=== PATIENT | female | born 1990 | race Caucasian/White ===

== ENCOUNTER 2016-08-02 14:21 | Inpatient (IN) | payer OTHER ==
[~2016-08-02] VITALS: Ht 162.6 cm; Wt 63.0 kg
[2016-08-02] MEDS ORDERED: LORAZEPAM 2 MG INJ IV ONE (15:00)
[2016-08-02 15:17] LABS: ADD SCAN DIFF NO
[2016-08-02 15:18] LABS: BASOPHIL # 0.1 10^3/ul (0.0-0.1); BASOPHILS % 0.5 % (0.0-2.0); EOSINOPHILS % 0.4 % (0.0-7.0); HEMATOCRIT 44.2 % (37.0-47.0); HEMOGLOBIN 15.1 g/dl (12.0-16.0); LYMPHOCYTES # 2.8 10^3/ul (0.8-2.9); LYMPHOCYTES % 25.5 % (15.0-51.0); MEAN CORPUSCULAR HEMOGLOBIN 31.3 pg (29.0-33.0); MEAN CORPUSCULAR HGB CONC 34.2 g/dl (32.0-37.0); MEAN CORPUSCULAR VOLUME 91.5 fl (82.0-101.0); MEAN PLATELET VOLUME 11.5 fl (7.4-10.4); MONOCYTE # 0.3 10^3/ul (0.3-0.9); MONOCYTES % 3.1 % (0.0-11.0); NEUTROPHIL # 7.8 10^3/ul (1.6-7.5); NEUTROPHILS % 70.2 % (39.0-77.0); PLATELET COUNT 293 10^3/UL (140-415); RED BLOOD COUNT 4.83 10^6/ul (4.20-5.40); RED CELL DISTRIBUTION WIDTH 11.2 % (11.5-14.5); WHITE BLOOD COUNT 11.1 10^3/ul (4.8-10.8)
--- NOTE | 2016-08-02 15:24 | RADRPT ---
PROCEDURE: XR Chest AP portable CLINICAL INDICATION: Chest pain TECHNIQUE: An AP portable radiograph of the chest was submitted. COMPARISON: None. FINDINGS: Support Hardware: None Cardiovascular: The cardiovascular silhouette appears unremarkable. Lung Frias: The lung frias appear clear with no nodule, alveolar infiltrate, or interstitial promi nence evident. Pleural Spaces: No pneumothorax or pleural effusion is identified. Osseous Structures: The osseous structures appear intact. Soft Tissues: The soft tissues appear unremarkable. IMPRESSION: Unremarkable portable chest. Physician Itz Date Time Electronically viewed and signed by Ayala Kang Physician on 08/02/2016 15:23 /
[2016-08-02 15:27] LABS: CHLORIDE 101 mmol/L (97-110); SODIUM 140 mmol/L (135-144)
[2016-08-02 15:28] LABS: POTASSIUM 3.6 mmol/L (3.5-5.1)
[2016-08-02 15:29] LABS: INR 0.91; PROTIME 12.3 Sec (12.2-14.2)
[2016-08-02 15:30] LABS: CREATININE 0.76 mg/dl (0.44-1.00)
[2016-08-02 15:31] LABS: ANION GAP 20 (8-16); BLOOD UREA NITROGEN 12 mg/dl (7-20); CARBON DIOXIDE 23 mmol/L (21-31); GLUCOSE 92 mg/dl (70-220)
[2016-08-02 15:40] LABS: B-TYPE NATRIURETIC PEPTIDE 46 PG/ML (0-125)
[2016-08-02 15:46] LABS: PARTIAL THROMBOPLASTIN TIME 25.9 Sec (25.0-35.0)
[2016-08-02 15:47] LABS: TROPONIN-I < 0.012 ng/ml (0.00-0.12)
--- NOTE | 2016-08-02 15:47 | ERA ---
ER Documentation Chief Complaint Date/Time DATE: 08/02/16 TIME: 15:44 Chief Complaint CWP,SOB X 2 MOS HPI 26-year-old female who presents with chest pain and shortness of breath for approximately 2-6 months. The patient has had progressive symptoms over this timeframe with multiple episodes of near syncope. Never with exertion, now occurring at rest. She was seen by primary care physician in approximately 1-2 weeks ago and told that she had an abnormal EKG and needed to see a manager retirement. She went to the office today with a manager retirement could not see her. The patient does have significant family history of cardiac arrest, sudden and early cardiac disease. She does not take control, no pleuritic pain. No exertional symptoms currently. ROS All systems reviewed and are negative except as per history of present illness. Medications Home Meds No Active Prescriptions or Reported Meds Allergies Allergies: Coded Allergies: No Known Allergy (Unverified , 08/02/16) PMhx/Soc History of Surgery: Yes (tonsilectomy) Anesthesia Reaction: No Hx Neurological Disorder: No Hx Respiratory Disorders: No Hx Cardiac Disorders: Yes (high cholesterol ) Hx Psychiatric Problems: No Hx Miscellaneous Medical Probl: No Hx Alcohol Use: Yes Hx Substance Use: No Hx Tobacco Use: No Smoking Status: Never smoker FmHx Family History: coronary disease Physical Exam Vitals Vital Signs Date Time Temp Pulse Resp B/P Pulse Ox O2 Delivery O2 Flow Rate FiO2 08/02/16 18:02 126 18 126/71 100 Room Air 08/02/16 17:49 105 17 128/74 100 Room Air 08/02/16 15:27 105 24 138/74 100 Room Air 08/02/16 14:28 98.2 109 20 132/78 99 Physical Exam General: Well developed, well nourished, no acute distress Head: Normocephalic, atraumatic. Eyes: Pupils equally reactive, EOM intact ENT: Moist mucous membranes Neck: Supple, no lymphadenopathy Respiratory: Lungs clear bilaterally, no distress Cardiovascular: Tachycardia, slight systolic murmur Abdominal: Soft, non-tender, non-distended, no peritoneal signs : Deferred MSK: No edema, no unilateral swelling, 5/5 strength Neurologic: Alert and oriented, moving all extremities, normal speech, no focal weakness, no cerebellar signs Skin: No rash Psych: Normal mood Result Diagram: 08/02/16 1500 08/02/16 1500 Results 24 hrs Laboratory Tests Test 08/02/16 15:00 White Blood Count 11.110^3/ul Red Blood Count 4.8310^6/ul Hemoglobin 15.1g/dl Hematocrit 44.2% Mean Corpuscular Volume 91.5fl Mean Corpuscular Hemoglobin 31.3pg Mean Corpuscular Hemoglobin Concent 34.2g/dl Red Cell Distribution Width 11.2% Platelet Count 67172^3/UL Mean Platelet Volume 11.5fl Neutrophils % 70.2% Lymphocytes % 25.5% Monocytes % 3.1% Eosinophils % 0.4% Basophils % 0.5% Nucleated Red Blood Cells % 0.0/100WBC Neutrophils # 7.810^3/ul Lymphocytes # 2.810^3/ul Monocytes # 0.310^3/ul Eosinophils # 0.010^3/ul Basophils # 0.110^3/ul Nucleated Red Blood Cells # 0.010^3/ul Prothrombin Time 12.3Sec Prothrombin Time Ratio 1.0 INR International Normalized Ratio 0.91 Activated Partial Thromboplast Time 25.9Sec D-Dimer < 220.00ng/ml D-Dimer Comment Sodium Level 140mmol/L Potassium Level 3.6mmol/L Chloride Level 101mmol/L Carbon Dioxide Level 23mmol/L Anion Gap 20 Blood Urea Nitrogen 12mg/dl Creatinine 0.76mg/dl Glucose Level 92mg/dl Calcium Level 10.0mg/dl Troponin I < 0.012ng/ml B-Type Natriuretic Peptide 46PG/ML Serum HCG, Qualitative NEGATIVE Current Medications Medications (Trade) Dose Ordered Sig/Cedric Route PRN Reason Start Time Stop Time Status Last Admin Dose Admin Lorazepam (Ativan) 0.5 mg ONCE ONCE IV 08/02/16 15:00 08/02/16 15:01 DC 08/02/16 15:08 Ondansetron HCl (Zofran Inj) 4 mg ER BRIDGE PRN IV NAUSEA AND/OR VOMITING 08/02/16 18:00 08/03/16 17:59 Acetaminophen (Tylenol Tab) 650 mg ER BRIDGE PRN PO MILD PAIN/FEVER 08/02/16 18:00 08/03/16 17:59 Procedures/MDM EKG, MONITORS, & DIAGNOSTIC IMAGING: EKG: I reviewed and interpreted a 12-lead EKG. Rhythm: Sinus tachycardia Ectopy: None Intervals: Left bundle branch block ST segments: No elevations or depressions T waves: No contiguous inversions EKG #2 Rhythm: Sinus tachycardia Ectopy: None Intervals: Left bundle branch block ST segments: No elevations or depressions T waves: No contiguous inversions LAB INTERPRETATION: Negative d-dimer, negative troponin MEDICAL DECISION MAKING: The patient presents with multiple months of chest pain, shortness of breath, near syncope. She has a left bundle branch block on EKG and significant family history for sudden , cardiac disease. I do not believe this is consistent with acute coronary syndrome however the patient does have conduction delay. The patient is having episodes of near syncope which could represent NSVT. The patient is having difficulty with follow-up as an outpatient basis. I believe she would benefit from inpatient hospitalization, cardiology consultation, echocardiogram and possible EP consultation. ER COURSE: The patient continues to be well-appearing, she intermittently has sinus tachycardia when anxious or when having a conversation. The patient's laboratory testing is unrevealing. The patient was given anxiolysis. I kept the patient and/or family informed of laboratory and diagnostic imaging results throughout the emergency room course. DISPOSITION PLAN: Telemetry admission for management of left bundle branch block, near syncope CONSULTATION: Accepting care team and consultations: I discussed the current laboratory data, diagnostic imaging and emergency care provided. Admitting team: Dr. Rich Admitting team indication: Insurance directed Departure Diagnosis: Primary Impression: Near syncope Additional Impression: Left bundle branch block Condition: Stable GUILLERMO LUNDBERG MD Aug 02, 2016 15:47
[2016-08-02 16:20] LABS: D-DIMER < 220.00 ng/ml (<460)
[2016-08-02] MEDS ORDERED: ONDANSETRON 4 MG INJ IV PRN (18:00)
[2016-08-02] MEDS ORDERED: ACETAMINOPHEN 325 MG TAB PO PRN ×2 (18:00→23:00)
[2016-08-02 19:40] VITALS: PULSE 130
[2016-08-02] MEDS ORDERED: METOPROLOL 5 MG INJ IV PRN (20:00)
[2016-08-02 20:03] VITALS: PULSE 90
[2016-08-02 20:07] VITALS: BP 117/68; RESP 20
--- NOTE | 2016-08-02 20:48 | CONS ---
DATE OF ADMISSION: 08/02/2016 DATE OF CONSULTATION: 08/02/2016 REASON FOR CONSULTATION: Abnormal electrocardiogram, near syncope, palpitations, rule out cardiac a rrhythmias, rule out acute coronary syndrome. REQUESTING PHYSICIAN: Alpa Nixon MD HISTORY OF PRESENT ILLNESS: Ms. Pagan is a 26-year-old female with a history of recently progress fritz episodes of palpitations, described as a fluttering with some recurrent episodes of lightheadedn ess or near syncope without actual syncope, mild shortness of breath at the same time as palpitation s and vague chest discomfort described as a tightness. In addition, the patient admits to anxiety. Upon arrival, temperature 98.2, blood pressure 132/78, pulse 109, respiratory rate 20, saturating 9 9%. The patient's labs revealed white count 11.1, hemoglobin 15.1, platelet count 293. Sodium 140, potassium 3.6, creatinine 0.7, BUN 12. Troponin negative. BNP 46. INR 0.91. The patient underwe nt a chest x-ray revealing no acute cardiopulmonary abnormalities. The patient's electrocardiogram revealed sinus tachycardia, rate of 107, left bundle branch block pattern, secondary repolarization abnormalities. Patient subsequently has been admitted to the floor and since admit to floor has bee n monitored on telemetry revealing sinus tachycardia in low 100s. The patient denies chest pain or shortness of breath at this time. PAST MEDICAL HISTORY: As above in HPI. MEDICATIONS CURRENTLY IN HOSPITAL: 1. Zofran p.r.n. 2. Tylenol p.r.n. 3. Ativan x1. ALLERGIES: NO KNOWN DRUG ALLERGIES. SOCIAL HISTORY: No tobacco, occasional social ETOH. No illicit drug use. FAMILY HISTORY: No history of sudden cardiac or early CAD. REVIEW OF SYSTEMS: As above in HPI. CONSTITUTIONAL: No fevers, chills. PULMONARY: Mild shortness of breath. CARDIOVASCULAR: Intermittent chest pain described as chest tightness, palpitations. GASTROINTESTINAL: No vomiting. GENITOURINARY: No hematuria. MUSCULOSKELETAL: Degenerative joint disease. PSYCHIATRIC: Anxiety. NEUROLOGIC: No documented CVA. PHYSICAL EXAMINATION VITAL SIGNS: Temperature of 98.2, blood pressure 126/71, pulse 103, respiratory rate 18, saturating 100%. GENERAL: The patient is alert, awake, appearing somewhat anxious. NECK: No jugular venous distention. CHEST: Fair movement throughout. HEART: Regular rate and rhythm. Normal S1, S2, chart I/ systolic murmur, nondisplaced PMI. ABDOMEN: Positive bowel sounds, soft. EXTREMITIES: No edema, 1+ pulses bilaterally, posterior tibial. LABORATORY DATA: As above in HPI. No further labs for my review at this time. IMAGING STUDIES: As above in HPI. No further imaging studies for my review at this time. ECG: As above in HPI with repeat EKG from approximately revealing sinus tachycardia 109, left bundle branch block pattern, secondary repolarization abnormalities. IMPRESSION: 1. Abnormal electrocardiogram with left bundle branch block pattern. Rule out acute coronary syndr ome. Rule out cardiac arrhythmia. 2. Palpitations. Rule out cardiac arrhythmia. 3. Near syncope. Assess for possible cardiac arrhythmia or other forms of structural heart disease , possibly lending to the patient's near syncopal episodes and abnormal EKG with baseline bundle bra nch block. 4. Chest pain, somewhat atypical, described as a tightening occurring at rest, associated with anxi ety. Assess for acute coronary syndrome. 5. Mild leukocytosis. 6. Dyspnea on exertion, intermittent. The patient does state she is able to work out many times wi thout significant shortness of breath, but does have shortness of breath at the same time as the pal pitations. RECOMMENDATIONS: 1. At this time, would maintain the patient on telemetry monitoring to follow rhythm and rate contr ol closely. 2. Would complete the patient's rule out for myocardial infarction to ensure this patient's EKG abn ormalities are chronic in nature and not due to any recent acute coronary syndrome. 3. Check a TSH to be sure that subclinical hyperthyroidism is not contributing to any bouts of tach ycardia, palpitations. 4. Check a 2D echo to rule out any structural heart disease may be associated with the patient's sy ncopal episodes and development of bundle branch block pattern. 5. Check a fasting lipid panel for general risk stratification and initiate lipid-lowering medicati on as necessary. 6. Will consider initiation of tatiana agents for patient comfort to suppress palpitations and furthe r bouts of tachycardia. Thank you for allowing me to take part in the care of this patient. I will continue to follow along very closely with you. Further recommendations will be made as the patient progresses through her inpatient hospital clinical course. Dictated By: MAXIMINO DAVISON/ÁNGEL Conf#: [id number] DID#: [id number] CC: ALPA NIXON MD;*[facility]*
[2016-08-02 21:20] LABS: CREATINE KINASE 31 IU/L (23-200)
[2016-08-02 21:27] LABS: TROPONIN-I < 0.012 ng/ml (0.00-0.12)
[2016-08-02 21:28] LABS: CK-MB < 0.22 ng/ml (0.0-2.4)
[2016-08-02 21:38] VITALS: Ht 162.6 cm; Wt 63.0 kg
[2016-08-02] MEDS ORDERED: LORAZEPAM 0.5 MG TAB PO PRN (23:00)
--- NOTE | 2016-08-02 23:40 | HP ---
DATE OF ADMISSION: 08/02/2016 CHIEF COMPLAINT: Intermittent palpitations and anxiety. HISTORY OF PRESENT ILLNESS: The patient is a 26-year-old female with a history of anxiety and histo ry of intermittent palpitations, was noted to have left bundle branch block on routine EKG done in a clinic earlier this month, and patient was subsequently referred to Dr. Saw Fatima for cardiology evaluation. However, due to communication issues, patient could not be seen in his office, and the family decided to bring her to [facility] ER. The patient denied any chest pain. No repo rted dizziness or any recent syncope. No reported nausea, vomiting, diarrhea. No reported abdomina l pain. No reported paresthesias. No reported headache. The patient was seen in ER, was found to have sinus tachycardia. However, the patient had stable vital signs. The patient did not have any shortness of breath. The patient is being admitted for further evaluation and management. PAST MEDICAL HISTORY: The patient reported that she had an episode of syncope when she was 12 years old while taking hot shower. PAST SURGICAL HISTORY: The patient also is status post tonsillectomy at age 12. ALLERGIES: NONE. SOCIAL HISTORY: No smoking or alcohol. FAMILY HISTORY: Noncontributory. PHYSICAL EXAMINATION: GENERAL: The patient is conscious, awake, alert. VITAL SIGNS: Stable, afebrile. Heart rate during my examination was in low 100s. HEENT: No eye discharge. No exophthalmos. Conjunctivae and lids normal. NECK: No mass, no bruit, no thyromegaly. CHEST: Fairly clear. CARDIOVASCULAR: S1, S2 normal. I over soft systolic murmur. ABDOMEN: Soft, nondistended, nontender. No palpable mass. EXTREMITIES: No leg edema. NEUROLOGIC: The patient is awake, alert, fairly oriented with no gross focal deficit. IMPRESSION: 1. Intermittent palpitations. 2. Anxiety. 3. History of hypothyroidism for which she was given replacement hormone for several months. PLAN: The patient admitted on telemetry floor. The patient will be started on BuSpar for anxiety a nd will also add Ativan on p.r.n. basis. Will obtain TSH and T4 and echocardiogram. I spoke with Trish Braun for cardiology consultation. Plan of care discussed with the patient's family. Fu rther recommendation will depend on patient's hospital course and recommendation from Cardiology. Dictated By: ALPA SOLIZ/ÁNGEL Conf#: [id number] DID#: [id number]
[2016-08-03] VITALS (9 sets, daily range): BP systolic 108–122; BP diastolic 57–63; PULSE 60–108; RESP 18–20
[2016-08-03 03:27] LABS: CHOL/HDL RATIO 2.4 RATIO; CREATINE KINASE 30 IU/L (23-200)
[2016-08-03 03:55] LABS: CK-MB < 0.22 ng/ml (0.0-2.4); TROPONIN-I < 0.012 ng/ml (0.00-0.12)
[2016-08-03 04:33] LABS: THYROID STIMULATING HORMONE 4.49 MIU/L (0.465-4.680)
[2016-08-03] MEDS ORDERED: BUSPIRONE 10 MG TAB PO SCH (09:00)
--- NOTE | 2016-08-03 13:44 | RADRPT ---
Echocardiogram Report Patient Name: MARKO ANN Gender: Female Date: 1990 Study Date: 03-Aug-2016 Timing Inspector: Charlee Christina [facility] Location: [id number] Ref. Physician: MAXIMINO BRAUN Quality: Good Procedures: Transthoracic echocardiogram with complete 2D, M-Mode, and doppler examination. Indications: LBBB. Abnormal EKG. pre-syncope. 2D/M Mode Doppler Measurement Value Normal Ranges Measurement Value Normal Ranges LVIDd 2D 4.1 3.5 - 5.6 cm AV Peak Tereso 1.1 m/sec LVIDs 2D 2.9 2.1 - 4.1 cm AV Peak PG 4.9 mmHg LVPWd 2D 0.7 0.6 - 1.1 cm MV E Peak Tereso 0.7 m/sec IVSd 2D 0.8 0.6 - 1.1 cm MV A Peak Tereso 0.9 m/sec AoR Diam 2D 2.5 2.0 - 3.7 cm MV E/A 0.7 EDV 2D 75.7 cm3 MV Decel Time 101 msec ESV 2D 25.6 cm3 MV Decel Woodruff 7 LA Dimen 2D 2.5 2.3 - 4.0 cm MV E/A 0.7 TR Peak Tereso 1.5 m/sec TR Peak PG 9.5 mmHg RVSP 13.0 mmHg Findings Left Ventricle: Normal left ventricular systolic function. Normal left ventricular cavity size. Normal left ventricular wall thickness. Ejection fraction is visually estimated at 55 %. Right Ventricle: Normal right ventricular size. Normal right ventricular systolic function. Left Atrium: The left atrium is normal in size. Right Atrium: The right atrium is normal in size. Mitral Valve: Normal appearance and function of the mitral valve with trace physiologic regurgitation. Aortic Valve: Normal appearance of the aortic valve. No significant aortic stenosis or insufficiency. Tricuspid Valve: Normal appearance and function of the tricuspid valve with trace physiologic regurgitation. Normal right ventricular systolic pressure. Estimated peak PA systolic pressure 13 mmHg. Pulmonic Valve: Pulmonic valve not well visualized. Pericardium: Normal pericardium with no significant pericardial effusion. Aorta: Normal aortic root. IVC: Normal size and normal respiratory collapse consistent with normal right atrial pressure. Conclusions Normal left ventricular systolic function. Normal left ventricular cavity size. Normal left ventricular wall thickness. Ejection fraction is visually estimated at 55 %. Normal appearance and function of the mitral valve with trace physiologic regurgitation. Normal appearance and function of the tricuspid valve with trace physiologic regurgitation. Normal right ventricular systolic pressure. Estimated peak PA systolic pressure 13 mmHg. Electronically Signed By: Maximino Braun 03-Aug-2016 13:43:55 -0700 Patient Name: MARKO ANN Study Date: 03-Aug-2016 [id number]
--- NOTE | 2016-08-03 13:56 | CONS ---
Date/Time of Note Date/Time of Note DATE: 08/03/16 TIME: 13:44 Assessment/Plan Assessment/Plan Chief Complaint/Hosp Course IMPRESSION: 1. Abnormal electrocardiogram with left bundle branch block pattern. Rule out acute coronary syndrome. Rule out cardiac arrhythmia. 2. Palpitations. Rule out cardiac arrhythmia.-negative troponin x 3/NL EF by echo this admit with no sig valve abnormalities/S tach by tele to 120/mainly low 100's/NL TSH 3. Near syncope. Assess for possible cardiac arrhythmia or other forms of structural heart disease, possibly lending to the patient's near syncopal episodes and abnormal EKG with baseline bundle branch block.-NL EF by echo this admit with no sig valve abnl 4. Chest pain, somewhat atypical, described as a tightening occurring at rest, associated with anxiety.-negative troponin x 3/NO recurrent chest pain 5. Mild leukocytosis. 6. Dyspnea on exertion, intermittent.-NL EF by echo Recc: -Tele -Symptoms overall improved with initiation anti-anxiety medication/Buspar -For ongoing sx of palpitations recc low dose BB and outpatient 30 day event monitoring -If remains stable with improved symptoms then ok for d/c with outpatient f/u 2 weeks Problems: Consultation Date/Type/Reason Admit Date/Time Aug 02, 2016 at 18:01 Initial Consult Date 08/03/2016 Type of Consultation: Cardiology Reason for Consultation palpitations/pre-syncope Referring Provider: ALPA NIXON MD Exam/Review of Systems Vital Signs Vitals Vital Signs Date Time Temp Pulse Resp B/P Pulse Ox O2 Delivery O2 Flow Rate FiO2 08/03/16 12:06 108 08/03/16 07:20 98.2 18 108/62 98 08/02/16 18:02 Room Air Intake and Output 08/02/16 08/02/16 08/03/16 15:00 23:00 07:00 Intake Total 240 ml Balance 240 ml Exam Review of Systems: CONSTITUTIONAL: No fevers, chills. PULMONARY: No sob CARDIOVASCULAR: No chest pain/palpitations GASTROINTESTINAL: No nausea/vomiting. GENITOURINARY: No hematuria/dysuria. MUSCULOSKELETAL: No myagias/arthalgias. PSYCHIATRIC: The patient denies depression. NEUROLOGIC: No weakness Constitutional: alert, well developed Head: normocephalic ENMT: mucosa pink and moist Neck: jvd, supple Respiratory: diminished breath sounds Cardiovascular: regular rate and rhythm Gastrointestinal: non-tender, soft Extremities: edema (none) Neurological: other (No focal deficits) Results Result Diagram: 08/02/16 1500 08/02/16 1500 Results 24 hrs Laboratory Tests Test 08/02/16 15:00 08/02/16 20:43 08/03/16 03:00 White Blood Count 11.1 H Red Blood Count 4.83 Hemoglobin 15.1 Hematocrit 44.2 Mean Corpuscular Volume 91.5 Mean Corpuscular Hemoglobin 31.3 Mean Corpuscular Hemoglobin Concent 34.2 Red Cell Distribution Width 11.2 L Platelet Count 293 Mean Platelet Volume 11.5 H Neutrophils % 70.2 Lymphocytes % 25.5 Monocytes % 3.1 Eosinophils % 0.4 Basophils % 0.5 Nucleated Red Blood Cells % 0.0 Neutrophils # 7.8 H Lymphocytes # 2.8 Monocytes # 0.3 Eosinophils # 0.0 Basophils # 0.1 Nucleated Red Blood Cells # 0.0 Prothrombin Time 12.3 Prothrombin Time Ratio 1.0 INR International Normalized Ratio 0.91 Activated Partial Thromboplast Time 25.9 D-Dimer < 220.00 D-Dimer Comment Sodium Level 140 Potassium Level 3.6 Chloride Level 101 Carbon Dioxide Level 23 Anion Gap 20 H Blood Urea Nitrogen 12 Creatinine 0.76 Glucose Level 92 Calcium Level 10.0 Troponin I < 0.012 < 0.012 < 0.012 B-Type Natriuretic Peptide 46 Thyroid Stimulating Hormone (TSH) 2.010 4.490 Serum HCG, Qualitative NEGATIVE Creatine Kinase 31 30 Creatine Kinase Index 0.7 0.7 Creatinine Kinase MB (Mass) < 0.22 < 0.22 Triglycerides Level 67 Cholesterol Level 186 LDL Cholesterol, Calculated 96 HDL Cholesterol 77 Cholesterol/HDL Ratio 2.4 Thyroxine (T4) 10.4 Medications Medications Current Medications Metoprolol Tartrate (Lopressor) 5 mg Q4H PRN IV HR>110 Hold SBP<100; Start at 20:00 Buspirone HCl (Buspar) 10 mg BID PO Last administered on 08/03/16t 08:14; Admin Dose 10 MG; Start 08/03/16 at 09:00 Lorazepam (Ativan) 0.5 mg TID PRN PO ANXIETY; Start 08/02/16 at 23:00 Acetaminophen (Tylenol Tab) 650 mg Q4H PRN PO PAIN AND OR ELEVATED TEMP; Start 08/02/16 at 23:00 MAXIMINO FROST Aug 03, 2016 13:56
--- NOTE | 2016-08-03 15:46 | PDOCDIS ---
Discharge Instructions CONDITION Patient Condition: Stable HOME CARE INSTRUCTIONS: Special Diet: REG ACTIVITY: Activity Restrictions: Rest between Activity Do not operate Machinery Do not operate Power Tool Avoid Heavy Housework Bathing Restrictions: Sponge Bath FOLLOW UP/APPOINTMENTS Appointments FU with primary MD x 1 week FU with Cardiology as recommended. Call 911 or go to the nearest hospital if symptoms get worse. Patient verbalized understanding discharge instruction, Eros Rich/staff/patient. SCHOOL/WORK RELEASE May return to School/Work on: Aug 08, 2016 ANAM MAGUIRE Aug 03, 2016 15:46
[2016-08-03] MEDS ORDERED: BUSP10TA2 PO (15:48)
[2016-08-03] MEDS ORDERED: LORA0.5T PO (15:48)
--- NOTE | 2016-08-03 15:49 | DS ---
Date/Time of Note Date/Time of Note DATE: 08/03/16 TIME: 15:48 Discharge Summary Admission/Discharge Info Admit Date/Time Aug 02, 2016 at 18:01 Discharge Date/Time Patient Condition: Stable Hospital Course IMPRESSION: 1. Abnormal electrocardiogram with left bundle branch block pattern. Rule out acute coronary syndrome. Rule out cardiac arrhythmia. 2. Palpitations. Rule out cardiac arrhythmia.-negative troponin x 3/NL EF by echo this admit with no sig valve abnormalities/S tach by tele to 120/mainly low 100's/NL TSH 3. Near syncope. Assess for possible cardiac arrhythmia or other forms of structural heart disease, possibly lending to the patient's near syncopal episodes and abnormal EKG with baseline bundle branch block.-NL EF by echo this admit with no sig valve abnl 4. Chest pain, somewhat atypical, described as a tightening occurring at rest, associated with anxiety.-negative troponin x 3/NO recurrent chest pain 5. Mild leukocytosis. 6. Dyspnea on exertion, intermittent.-NL EF by echo Recc: -Tele -Symptoms overall improved with initiation anti-anxiety medication/Buspar -For ongoing sx of palpitations recc low dose BB and outpatient 30 day event monitoring -If remains stable with improved symptoms then ok for d/c with outpatient f/u 2 weeks Home Meds Active Scripts Lorazepam* (Lorazepam*) 0.5 Mg Tablet, 0.5 MG PO BID, #30 TAB Prov:ANAM MAGUIRE 08/03/16 Buspirone Hcl* (Buspirone Hcl*) 10 Mg Tab, 10 MG PO BID for 60 Days, TAB Prov:ANAM MAGUIRE 08/03/16 Pending Labs Laboratory Tests Test 08/02/16 20:43 08/03/16 03:00 Creatine Kinase 31IU/L (23-200) 30IU/L (23-200) Creatine Kinase Index 0.7 0.7 Creatinine Kinase MB (Mass) < 0.22ng/ml (0.0-2.4) < 0.22ng/ml (0.0-2.4) Troponin I < 0.012ng/ml (0.00-0.12) < 0.012ng/ml (0.00-0.12) Triglycerides Level 67mg/dl (0-149) Cholesterol Level 186mg/dl (100-200) LDL Cholesterol, Calculated 96mg/dl HDL Cholesterol 77mg/dl (33-83) Cholesterol/HDL Ratio 2.4RATIO Thyroid Stimulating Hormone (TSH) 4.490MIU/L (0.465-4.680) Thyroxine (T4) 10.4ug/dl (5.5-11.0) ANAM MAGUIRE Aug 03, 2016 15:48
== END 2016-08-03 16:30 | disposition home or self-care (01) | DRG 312 ==
LOC: E/R 14:21 → TEL 18:01
PROVIDERS: ADMIT Internal Medicine; ATTEND Internal Medicine
DX: R55 Syncope and collapse (principal); E03.9 Hypothyroidism, unspecified; I44.7 Left bundle-branch block, unspecified; R07.9 Chest pain, unspecified; D72.829 Elevated white blood cell count, unspecified; R06.00 Dyspnea, unspecified; R00.2 Palpitations; F41.9 Anxiety disorder, unspecified
CPT/HCPCS: 36415; 71010; 80048; 80061; 82550; 82553; 83880; 84436; 84443; 84484; 84703; 85025; 85378; 85610; 85730; 93005; 93306; 96374; J2060